=== PATIENT | female | born 1980 | race Caucasian/White ===

== ENCOUNTER 2020-03-27 08:40 | Emergency (ER) | payer OTHER, SELFPAY ==
[2020-03-27 08:56] VITALS: BP 138/98; PULSE 88; RESP 18; TEMP 36.9; O2SAT 99; BMI 37.3
--- NOTE | 2020-03-27 08:59 | CT_ITS ---
EXAMINATION: CT ABDOMEN AND PELVIS WITHOUT CONTRAST CLINICAL INFORMATION: Left flank pain. COMPARISON: None TECHNIQUE: Multidetector volumetric imaging was performed from the superior aspect of the liver through the pubic symphysis. Sagittal and coronal reformatted images were obtained on the technologist's workstation. This CT examination was performed using dose optimization techniques as appropriate, variously including the following: *Automated exposure control *Adjustment of mA and/or kV according to patient size (this includes techniques or standardized protocols for targeted exams where dose is matched to indication/reason for exam; i.e. extremities or head) *Use of iterative reconstruction technique DLP: 837 mGy-cm FINDINGS: LUNG BASES: The visualized lung bases are unremarkable. LIVER, GALLBLADDER, AND BILIARY TREE: The liver is normal in size, shape, and attenuation. No focal hepatic lesion or biliary ductal dilatation is present. Bladder has been surgically removed. PANCREAS: Unremarkable. SPLEEN: Unremarkable. ADRENAL GLANDS: Unremarkable. KIDNEYS AND URETERS: The kidneys are normal in size, shape, and attenuation. There are nonobstructing 2 mm radiopaque calculi in the lower pole of right and left kidney. No caliectasis or hydronephrosis seen. BLADDER: Unremarkable. GASTROINTESTINAL TRACT: There is scattered stool and gas seen throughout the colon without any significant distention. The small bowel loops are normal caliber. Appendix is normal caliber. ABDOMINAL WALL: No significant hernia is appreciated. LYMPH NODES: Normal. VASCULAR: Unremarkable. PELVIC VISCERA: The uterus is anteverted within IUD well located within the endometrial canal. No adnexal mass or free fluid seen. OSSEOUS STRUCTURES: There is mild posterior spondylosis/bulge complex at L5-S1 disc levels. CT/CT abdomen pelvis wo con IMPRESSION: Nonobstructive bilateral tumor radiopaque calculi lower pole both kidneys. There is no hydroureteronephrosis. The gallbladder has been surgically removed. Appendix is normal caliber. There is mild constipation.
--- NOTE | 2020-03-27 09:00 | ED.ABDPAIN ---
HPI - Abdominal Pain General Chief Complaint: Abdominal Pain Stated Complaint: kidney pain Time Seen by Provider: 03/27/20 08:58 Source: patient Mode of arrival: ambulatory Limitations: no limitations History of Present Illness MD elicited complaint: flank pain Onset (ago): day(s) (2) Pain Consistency: constant Location: L flank Severity: moderate Quality: stabbing Radiation: LLQ Migration to: no migration Exacerbating factors: nothing Relieving factors: nothing Associated symptoms: nausea, vomiting and dysuria Treatments prior to arrival: NSAIDs Related Data Previous Rx's Medication Instructions Recorded cyclobenzaprine 10 mg PO TID PRN #14 tab 03/27/20 ibuprofen 600 mg PO Q6H PRN #30 tab 03/27/20 nitrofurantoin monohyd/m-cryst 100 mg PO BID 7 Days #14 cap 03/27/20 [Macrobid] ondansetron 4 mg PO Q8H PRN #20 tab 03/27/20 Allergies Allergy/AdvReac Type Severity Reaction Status Date / Time No Known Allergies Allergy Unverified 12/23/19 16:34 [No Known Allergies*] Review of Systems Review of Systems Constitutional : No Fever, No Chills ENT/Mouth : No sore throat Eyes: No Eye Pain, No Swelling, No Redness Cardiovascular : No Chest Pain, No SOB Respiratory : No Cough, No Sputum, No Wheezing Gastrointestinal : positive Nausea, positive Vomiting, No Diarrhea, positive abdominal pain Genitourinary : positive Dysuria, no urinary frequency, no Hematuria, positive Flank Pain, positive hesitancy Musculoskeletal : No joint pain, No Myalgias Skin : No Skin Lesions, No rash Neuro : No Weakness, No Numbness, No Headache Psych : No Anxiety/Panic, No Depression Heme/Lymph: No Bruising, No Lymphadenopathy Endocrine : No Polyuria, No Polydipsia All other systems reviewed and are negative Physical Exam Vital Signs: Vital Signs: Last Vital Signs Temp 98.7 F 03/27/20 10:42 Pulse 65 03/27/20 10:42 Resp 18 03/27/20 10:42 BP 112/56 L 03/27/20 10:42 Pulse Ox 100 03/27/20 10:42 Body Mass Index 37.3 Appearance: Alert. Oriented X3. No acute distress. Eyes: Pupils equal, round and reactive to light. ENT: Pharynx normal. Neck: Normal inspection. Neck supple. CVS: Normal heart rate and rhythm. Pulses normal. Respiratory: No respiratory distress. Breath sounds normal. Abdomen: Soft and non-tender. Back: Mild L CVA ttp Skin: Skin warm and dry. Normal skin color. Normal skin turgor. Extremities: No lower extremity edema. No calf ttp Neuro: Oriented X 3. No motor deficit. No sensory deficit. Course Course Course Narrative: no acute findings at this time other + UA MDM - Abdominal Pain MDM Narrative Medical decision making narrative: 40 yo female with L flank pain and n/v x 2 days will need labs, CT scan for renal colic, IV morphine for pain, UA, dispo per results and findings. Lab Data Result diagrams: 03/27/20 09:28 03/27/20 09:27 Labs: Lab Results 03/27/20 03/27/20 03/27/20 Range/Units 09:27 09:27 09:28 WBC 7.1 (4.8-10.8) X10*3/uL RBC 4.85 (4.20-5.50) X10*6/uL Hgb 14.0 (12.0-16.0) g/dl Hct 43.5 (37-47) % MCV 89.7 (80-98) fL MCH 28.9 (27.0-33.0) pg MCHC 32.2 (31.0-35.0) g/dl RDW 13.6 (11.0-16.0) % Plt Count 184 (160-400) X10*3/uL MPV 12.1 (9.4-12.3) fL Immature Gran % (Auto) 0.3 (0.0-0.4) % Neut % (Auto) 71.8 (45-73) % Lymph % (Auto) 21.3 (20-40) % Crockett % (Auto) 4.9 (2-11) % Eos % (Auto) 1.3 (0-4) % Baso % (Auto) 0.4 (0-2) % Lymph # (Auto) 1.5 (1.2-4.9) X10*3/uL Crockett # (Auto) 0.4 (0.1-1.2) X10*3/uL Eos # (Auto) 0.1 (0.0-0.4) X10*3/uL Baso # (Auto) 0.0 (0.0-0.2) X10*3/uL Abs Immat Gran (auto) 0.02 (0.00-0.03) X10*3/uL Absolute Neuts (auto) 5.1 (2.0-8.3) X10*3/uL Absolute Nucleated RBC 0.000 (0.0-0.012) X10*3/uL Nucleated RBC % (auto) 0.0 (0.0-0.2) /100WBC Hold Blue Top SEE NOTE Sodium 137 (135-145) mmol/L Potassium 4.4 (3.3-5.1) mmol/l Chloride 105 (96-108) mmol/L Carbon Dioxide 23 (22-29) mmol/L Anion Gap 13 (12-20) BUN 12 (9-16) mg/dL Creatinine 0.77 (0.5-1.4) mg/dL Estim Creat Clear Calc 121.3 Estimated GFR > 60 Random Glucose 94 (60-115) mg/dL Calcium 8.9 (8.4-10.2) mg/dL Magnesium 1.9 (1.6-2.6) mg/dL Total Bilirubin 0.6 (0.0-1.0) mg/dL Direct Bilirubin 0.2 (0.0-0.5) mg/dL AST 21 (5-31) U/L ALT 17 (0-31) U/L Alkaline Phosphatase 63 (39-117) U/L Total Protein 7.5 (6.5-8.0) g/dL Albumin 4.1 (3.5-5.0) g/dL Lipase 23 (8-78) U/L Urine Color Urine Appearance Urine pH (5.0-8.0) Ur Specific Monroe (1.005-1.025) Urine Protein (NEG-TRACE) MG/DL Urine Glucose (UA) (NEG) MG/DL Urine Ketones (NEG) MG/DL Urine Blood (NEG) Urine Nitrite (NEG) Ur Leukocyte Esterase (NEG) Urine RBC (0) /HPF Urine WBC (0-4) /HPF Ur Squamous Epith Cells /LPF Urine Bacteria /LPF Urine Mucus /LPF Urine Test (NEGATIVE) 03/27/20 Range/Units 09:28 WBC (4.8-10.8) X10*3/uL RBC (4.20-5.50) X10*6/uL Hgb (12.0-16.0) g/dl Hct (37-47) % MCV (80-98) fL MCH (27.0-33.0) pg MCHC (31.0-35.0) g/dl RDW (11.0-16.0) % Plt Count (160-400) X10*3/uL MPV (9.4-12.3) fL Immature Gran % (Auto) (0.0-0.4) % Neut % (Auto) (45-73) % Lymph % (Auto) (20-40) % Crockett % (Auto) (2-11) % Eos % (Auto) (0-4) % Baso % (Auto) (0-2) % Lymph # (Auto) (1.2-4.9) X10*3/uL Crockett # (Auto) (0.1-1.2) X10*3/uL Eos # (Auto) (0.0-0.4) X10*3/uL Baso # (Auto) (0.0-0.2) X10*3/uL Abs Immat Gran (auto) (0.00-0.03) X10*3/uL Absolute Neuts (auto) (2.0-8.3) X10*3/uL Absolute Nucleated RBC (0.0-0.012) X10*3/uL Nucleated RBC % (auto) (0.0-0.2) /100WBC Hold Blue Top Sodium (135-145) mmol/L Potassium (3.3-5.1) mmol/l Chloride (96-108) mmol/L Carbon Dioxide (22-29) mmol/L Anion Gap (12-20) BUN (9-16) mg/dL Creatinine (0.5-1.4) mg/dL Estim Creat Clear Calc Estimated GFR Random Glucose (60-115) mg/dL Calcium (8.4-10.2) mg/dL Magnesium (1.6-2.6) mg/dL Total Bilirubin (0.0-1.0) mg/dL Direct Bilirubin (0.0-0.5) mg/dL AST (5-31) U/L ALT (0-31) U/L Alkaline Phosphatase (39-117) U/L Total Protein (6.5-8.0) g/dL Albumin (3.5-5.0) g/dL Lipase (8-78) U/L Urine Color YELLOW Urine Appearance HAZY Urine pH 6.0 (5.0-8.0) Ur Specific Monroe 1.025 (1.005-1.025) Urine Protein NEG (NEG-TRACE) MG/DL Urine Glucose (UA) NEG (NEG) MG/DL Urine Ketones NEG (NEG) MG/DL Urine Blood TRACE (NEG) Urine Nitrite NEG (NEG) Ur Leukocyte Esterase TRACE H (NEG) Urine RBC 1-4 (0) /HPF Urine WBC 5-9 H (0-4) /HPF Ur Squamous Epith Cells 2+ /LPF Urine Bacteria 1+ /LPF Urine Mucus 1+ /LPF Urine Test NEGATIVE (NEGATIVE) Discharge Plan Discharge Clinical Impression: Cystitis Patient Disposition: Home, Self-Care Instructions: Urinary Tract Infection in Women (ED), Flank Pain (ED) Additional Instructions: return to ED for any worsening symptoms or concerns Prescriptions: New cyclobenzaprine 10 mg tablet 10 mg PO TID PRN (Reason: muscle spasm) Qty: 14 RF: 0 ibuprofen 600 mg tablet 600 mg PO Q6H PRN (Reason: pain) Qty: 30 RF: 0 ondansetron 4 mg tablet,disintegrating 4 mg PO Q8H PRN (Reason: nausea and vomiting) Qty: 20 RF: 0 nitrofurantoin monohyd/m-cryst [Macrobid] 100 mg capsule 100 mg PO BID 7 Days Qty: 14 RF: 0 Referrals: Derick Benavidez MD [Primary Care Provider] - 2 days (if not better) Stand Alone Forms: Work/School Release [facility] Past Medical History Medical History (Updated 03/27/20 @ 10:51 by Mojgan Love DO) Gallstones Surgical History (Updated 03/27/20 @ 09:17 by Mojgan Love DO) Hx of cholecystectomy Social History Social History Alcohol intake: never Smoking Status: Current some day smoker Use of substances other than those prescribed or required for medical reasons: No Advance Directives: No Advance Directives Information Provided: No
[2020-03-27] MEDS: ondansetron HCL 4 MG/2 ML VIAL IVPUSH (09:29)
[2020-03-27] MEDS: Morphine Sulfate 4 MG/ML CARTRIDGE IVPUSH (09:31)
[2020-03-27] MEDS: 0.9 % Sodium Chloride 1,000 ML 999 ML IVCONT (09:33)
[2020-03-27 09:42] LABS: Glucose Urine UA NEG (NEG); Leukocyte Esterase Urine TRACE (NEG); Nitrite Urine NEG (NEG); Specific Gravity - Urine 1.025 (1.005-1.025); Urine Blood TRACE (NEG); Urine Ketones NEG (NEG); Urine Protein NEG (NEG-TRACE)
[2020-03-27 09:43] LABS: MANUAL DIFF FLAG NO
[2020-03-27 09:44] LABS: Appearance Urine HAZY; Basophils Percent Auto 0.4 % (0-2); Color Urine YELLOW; Eosinophils Absolute Auto 0.1 X10*3/uL (0.0-0.4); Eosinophils Percent Auto 1.3 % (0-4); Hematocrit 43.5 % (37-47); Imm Gran Abs Auto 0.02 X10*3/uL (0.00-0.03); Imm Gran Pct Auto 0.3 % (0.0-0.4); Lymphocytes Absolute Auto 1.5 X10*3/uL (1.2-4.9); Lymphocytes Percent Auto 21.3 % (20-40); Mean Corpuscular HGB Conc 32.2 g/dl (31.0-35.0); Mean Corpuscular Hemoglobin 28.9 pg (27.0-33.0); Mean Corpuscular Volume 89.7 fL (80-98); Mean Platelet Volume 12.1 fL (9.4-12.3); Monocytes Absolute Auto 0.4 X10*3/uL (0.1-1.2); Monocytes Percent Auto 4.9 % (2-11); Neutrophils Absolute Auto 5.1 X10*3/uL (2.0-8.3); Neutrophils Percent Auto 71.8 % (45-73); Platelet Count 184 X10*3/uL (160-400); Red Blood Count 4.85 X10*6/uL (4.20-5.50); Red Cell Distribution Width 13.6 % (11.0-16.0); White Blood Count 7.1 X10*3/uL (4.8-10.8)
[2020-03-27 09:49] LABS: Bacteria Urine 1+ /LPF; Mucus Urine 1+ /LPF; Squamous Epithelial Cell Urine 2+ /LPF
[2020-03-27 09:50] LABS: UPreg QC Valid YES; Urine Pregnancy NEGATIVE (NEGATIVE)
[2020-03-27 10:28] LABS: Alanine Aminotransferase 17 U/L (0-31); Albumin Level 4.1 g/dL (3.5-5.0); Alkaline Phosphatase 63 U/L (39-117); Anion Gap 13 (12-20); Aspartate Amino Transferase 21 U/L (5-31); Bilirubin Direct 0.2 mg/dL (0.0-0.5); Bilirubin Total 0.6 mg/dL (0.0-1.0); Blood Urea Nitrogen 12 mg/dL (9-16); Calcium 8.9 mg/dL (8.4-10.2); Carbon Dioxide 23 mmol/L (22-29); Chloride 105 mmol/L (96-108); Creatinine Clr Calc Pharmacy 121.3; Estimated Glomerular Filt Rate > 60; Glucose Random 94 mg/dL (60-115); Lipase 23 U/L (8-78); Magnesium 1.9 mg/dL (1.6-2.6); Potassium 4.4 mmol/l (3.3-5.1); Sodium 137 mmol/L (135-145); Total Protein 7.5 g/dL (6.5-8.0)
[2020-03-27 10:42] VITALS: BP 112/56; PULSE 65; RESP 18; TEMP 37.1; O2SAT 100
== END 2020-03-27 11:15 | disposition home or self-care (01) ==
PROVIDERS: Emergency Provider Emergency Medicine; PCP Internal Medicine
DX: N30.00 Acute cystitis without hematuria (principal); F17.200 Nicotine dependence, unspecified, uncomplicated
CPT/HCPCS: 36415; 74176; 80048; 80076; 81001; 81025; 83690; 83735; 85025; 87086; 96361; 96374; 96375; 99285; J2270; J2405

== ENCOUNTER 2020-07-10 11:35 | Emergency (ER) | payer OTHER, SELFPAY ==
--- NOTE | 2020-07-10 14:22 | ED_ITS ---
HPI - General Adult General Chief complaint: Fever <KRISTYN Briceno Last Filed: 07/10/20 17:49> Stated complaint: fever, covid exposed <KRISTYN Briceno - Last Filed: 07/10/20 17:49> Time Seen by Provider: 07/10/20 14:11 <KRISTYN Briceno Last Filed: 07/10/20 17:49> Source: patient <KRISTYN Briceno Last Filed: 07/10/20 17:49> Mode of arrival: ambulatory <KRISTYN Briceno Last Filed: 07/10/20 17:49> Limitations: no limitations <KRISTYN Briceno Last Filed: 07/10/20 17:49> History of Present Illness HPI narrative: 40 y/o female presenting with chest discomfort, headaches, body aches, nausea with 2 episodes of vomiting that started last night. She had a known exposure to her daughter who later found out has COVID-19. She denies SOB or difficulty breathing. She has no cough, no abdominal pain. She presents for COVID-19 testing. <KRISTYN Briceno - Last Filed: 07/10/20 17:49> MD complaint: COVID symptoms <KRISTYN Briceno Last Filed: 07/10/20 17:49> Onset (ago): day(s) (1) <KRISTYN Briceno Last Filed: 07/10/20 17:49> Location: head, chest and back <KRISTYN Briceno Last Filed: 07/10/20 17:49> Radiation: non-radiation <KRISTYN Briceno Last Filed: 07/10/20 17:49> Severity: moderate <KRISTYN Briceno Last Filed: 07/10/20 17:49> Quality: aching <KRISTYN Briceno Last Filed: 07/10/20 17:49> Pain Consistency: constant <KRISTYN Briceno Last Filed: 07/10/20 17:49> Relieving factors: none <KRISTYN Briceno Last Filed: 07/10/20 17:49> Exacerbating factors: movement <KRISTYN Briceno Last Filed: 07/10/20 17:49> Associated symptoms: chest pain, malaise and nausea/vomiting <KRISTYN Briceno Last Filed: 07/10/20 17:49> Treatments prior to arrival: none <KRISTYN Briceno - Last Filed: 07/10/20 17:49> Related Data Home medications: Previous Rx's Medication Instructions Recorded cyclobenzaprine 10 mg PO TID PRN #14 tab 03/27/20 ibuprofen 600 mg PO Q6H PRN #30 tab 03/27/20 nitrofurantoin monohyd/m-cryst 100 mg PO BID 7 Days #14 cap 03/27/20 [Macrobid] ondansetron 4 mg PO Q8H PRN #20 tab 03/27/20 ondansetron HCl [Zofran] 4 mg PO Q8H PRN #10 tab 07/10/20 <KRISTYN Briceno Last Filed: 07/10/20 17:49> Allergies/adverse reactions: Allergies Allergy/AdvReac Type Severity Reaction Status Date / Time No Known Allergies Allergy Verified 07/10/20 15:08 [No Known Allergies*] <KRISTYN Briceno - Last Filed: 07/10/20 17:49> Review of Systems Review of Systems: Constitutional: No Fever, + Chills ENT/Mouth: No sore throat, No Rhinorrhea, No Swallowing Difficulty Cardiovascular: + Chest Pain, No SOB Respiratory: No Cough, No Sputum, No Wheezing, No dyspnea Gastrointestinal: No Nausea, No Vomiting, No Diarrhea, No abdominal Pain Musculoskeletal: No joint pain, + Myalgias Skin: No rash Neuro: + Weakness, No Numbness, No Dizziness, + Headache <KRISTYN Briceno Last Filed: 07/10/20 17:49> FORMERLY [facility] Past Medical History Attestation statement: The following information was validated with the patient. <KRISTYN Briceno Last Filed: 07/10/20 17:49> Medical History: Medical History Gallstones <KRISTYN Briceno Last Filed: 07/10/20 17:49> Surgical History: Surgical History Hx of cholecystectomy <KRISTYN Briceno - Last Filed: 07/10/20 17:49> Social History Social History: Social History Alcohol intake: never Smoking Status: Current some day smoker Advance Directives: No Advance Directives Information Provided: No <KRISTYN Briceno - Last Filed: 07/10/20 17:49> Physical Exam Vital Signs: Vital Signs: Last Vital Signs Temp 98.1 F 07/10/20 15:05 Pulse 87 07/10/20 15:05 Resp 16 07/10/20 15:05 BP 119/82 07/10/20 15:05 Pulse Ox 98 07/10/20 15:05 Body Mass Index 35.5 Appearance: Alert. Oriented X3. No acute distress. Eyes: Pupils equal, round and reactive to light. ENT: Pharynx normal. Neck: Normal inspection. Neck supple. CVS: Normal heart rate and rhythm. Pulses normal. Respiratory: No respiratory distress. Breath sounds normal. Anterior chest wall tenderness Abdomen: Soft and nontender. +BS x4 Skin: Skin warm and dry. Normal skin color. Normal skin turgor. No rashes. Extremities: No lower extremity edema. Negative Krista's sign Neuro: Oriented X 3. Non-focal <KRISTYN Briceno - Last Filed: 07/10/20 17:49> Vital Signs: Last Vital Signs Temp 98.1 F 07/10/20 15:05 Pulse 87 07/10/20 15:05 Resp 16 07/10/20 15:05 BP 119/82 07/10/20 15:05 Pulse Ox 98 07/10/20 15:05 Body Mass Index 35.5 <Keyon Moreno MD - Last Filed: 07/25/20 09:18> Course Course Course Narrative: 40 y/o female presenting with COVID symptoms after known exposure. Vital signs are normal and her exam is normal. Counseled on probable COVID diagnosis and management, will swab. Stable for discharge, will call with results. <KRISTYN Briceno - Last Filed: 07/10/20 17:49> I have reviewed the chart <Keyon Moreno MD - Last Filed: 07/25/20 09:18> Medical Decision Making Lab Data Labs: Lab Results 07/10/20 Range/Units 15:09 Coronavirus (PCR) POSITIVE A (Negative) Influenza Type A (PCR) NEGATIVE (Negative) Influenza Type B (PCR) NEGATIVE (Negative) RSV RNA Qual (PCR) NEGATIVE (Negative) <KRISTYN Briceno - Last Filed: 07/10/20 17:49> Lab Results 07/10/20 Range/Units 15:09 Coronavirus (PCR) POSITIVE A (Negative) Influenza Type A (PCR) NEGATIVE (Negative) Influenza Type B (PCR) NEGATIVE (Negative) RSV RNA Qual (PCR) NEGATIVE (Negative) <Keyon Moreno MD - Last Filed: 07/25/20 09:18> Critical Care Time Critical Care Time Critical Care Time: No <KRISTYN Briceno - Last Filed: 07/10/20 17:49> Discharge Plan Discharge Clinical Impression: Acute viral syndrome <KRISTYN Briceno - Last Filed: 07/10/20 17:49> Patient Disposition: Home, Self-Care <KRISTYN Briceno - Last Filed: 07/10/20 17:49> Instructions: Viral Syndrome (ED), COVID-19 (Coronavirus Disease 2019) (ED) <KRISTYN Briceno - Last Filed: 07/10/20 17:49> Additional Instructions: You were tested for COVID-19 today. We will call you with the results this afternoon. Given your known exposure, do not go out in public for the next 10 days. Rest. Drink plenty of fluids. Take over the counter cold/flu medications as needed for your symptoms. Take Tylenol and/or Motrin as needed for fevers and body aches. Follow up with your doctor this week. If you develop difficulty breathing or any other concerning symptom come back to the ER for further evaluation. <KRISTYN Briceno - Last Filed: 07/10/20 17:49> Prescriptions: New ondansetron HCl [Zofran] 4 mg tablet 4 mg PO Q8H PRN (Reason: nausea and vomiting) Qty: 10 RF: 0 No Action cyclobenzaprine 10 mg tablet 10 mg PO TID PRN (Reason: muscle spasm) Qty: 14 RF: 0 ibuprofen 600 mg tablet 600 mg PO Q6H PRN (Reason: pain) Qty: 30 RF: 0 ondansetron 4 mg tablet,disintegrating 4 mg PO Q8H PRN (Reason: nausea and vomiting) Qty: 20 RF: 0 nitrofurantoin monohyd/m-cryst [Macrobid] 100 mg capsule 100 mg PO BID 7 Days Qty: 14 RF: 0 <KRISTYN Briceno - Last Filed: 07/10/20 17:49> Interventions: ED Discharge Assessment Last Done: 07/10/20 15:58 <KRISTYN Briceno - Last Filed: 07/10/20 17:49> Discharge Date/Time: 07/10/20 15:58 <KRISTYN Briceno - Last Filed: 07/10/20 17:49>
[2020-07-10 15:05] VITALS: BP 119/82; PULSE 87; RESP 16; TEMP 36.7; O2SAT 98; BMI 35.5
[2020-07-10 16:23] LABS: Influenza A PCR NEGATIVE (Negative); Influenza B PCR NEGATIVE (Negative); Resp Syncy Virus RNA Qual PCR NEGATIVE (Negative); SARS COV2 PCR INHOUSE POSITIVE (Negative)
== END 2020-07-10 15:58 | disposition home or self-care (01) ==
PROVIDERS: Physician Assistant; Emergency Provider Emergency Medicine; PCP Internal Medicine
DX: U07.1 COVID-19 (principal)
CPT/HCPCS: 0241U; 36415; 99283

== ENCOUNTER 2021-01-25 15:39 | Outpatient (REF) | payer OTHER, SELFPAY ==
[2021-01-25 15:51] LABS: MANUAL DIFF FLAG NO
[2021-01-25 16:56] LABS: Basophils Percent Auto 0.5 % (0-2); Eosinophils Absolute Auto 0.2 X10*3/uL (0.0-0.4); Eosinophils Percent Auto 1.9 % (0-4); Hematocrit 40.3 % (37-47); Imm Gran Abs Auto 0.05 X10*3/uL (0.00-0.03); Imm Gran Pct Auto 0.6 % (0.0-0.4); Lymphocytes Absolute Auto 2.1 X10*3/uL (1.2-4.9); Lymphocytes Percent Auto 23.9 % (20-40); Mean Corpuscular HGB Conc 32.3 g/dl (31.0-35.0); Mean Corpuscular Hemoglobin 28.8 pg (27.0-33.0); Mean Corpuscular Volume 89.4 fL (80-98); Mean Platelet Volume 12.3 fL (9.4-12.3); Monocytes Absolute Auto 0.5 X10*3/uL (0.1-1.2); Monocytes Percent Auto 6.1 % (2-11); Neutrophils Absolute Auto 5.9 X10*3/uL (2.0-8.3); Platelet Count 193 X10*3/uL (160-400); Red Blood Count 4.51 X10*6/uL (4.20-5.50); Red Cell Distribution Width 13.2 % (11.0-16.0); White Blood Count 8.8 X10*3/uL (4.8-10.8)
[2021-01-25 17:02] LABS: Prothrombin Time 11.3 SEC (9.9-13.0)
[2021-01-25 17:05] LABS: Partial Thromboplastin Time 31.6 SEC (24.1-38.0)
[2021-01-25 17:22] LABS: Alanine Aminotransferase 19 U/L (0-31); Albumin Level 4.1 g/dL (3.5-5.0); Alkaline Phosphatase 72 U/L (39-117); Anion Gap 12 (12-20); Aspartate Amino Transferase 22 U/L (5-31); Bilirubin Total 0.4 mg/dL (0.0-1.0); Blood Urea Nitrogen 17 mg/dL (9-16); Calcium 9.5 mg/dL (8.4-10.2); Carbon Dioxide 29 mmol/L (22-29); Chloride 105 mmol/L (96-108); Estimated Glomerular Filt Rate > 60; Glucose Random 84 mg/dL (60-115); Potassium 4.6 mmol/L (3.3-5.1); Sodium 141 mmol/L (135-145)
== END 2021-01-25 15:40 | disposition home or self-care (01) ==
LOC: HO.LAB 15:39
PROVIDERS: PCP Internal Medicine; Visit Provider Internal Medicine
DX: Z01.818 Encounter for other preprocedural examination (principal)
CPT/HCPCS: 36415; 80053; 85025; 85610; 85730

== ENCOUNTER 2021-03-05 09:32 | Emergency (ER) | payer OTHER, SELFPAY ==
--- NOTE | ~2021-03-05 | CT_ITS ---
EXAMINATION: CT ABDOMEN AND PELVIS WITH CONTRAST CLINICAL INFORMATION: Status post abdominoplasty in the ER. COMPARISON: None TECHNIQUE: Multidetector volumetric images were obtained from the superior aspect of the liver through the pubic symphysis following administration 85 mL of Omnipaque 350 intravenous contrast. Sagittal and coronal reformatted images were obtained on the technologist's workstation. Oral contrast: No This CT examination was performed using dose optimization techniques as appropriate, variously including the following: *Automated exposure control *Adjustment of mA and/or kV according to patient size (this includes techniques or standardized protocols for targeted exams where dose is matched to indication/reason for exam; i.e. extremities or head) *Use of iterative reconstruction technique DLP: 748 mGy-cm FINDINGS: LUNG BASES: The visualized lung bases are unremarkable. Suspect small hiatal hernia LIVER, GALLBLADDER, AND BILIARY TREE: The liver is normal in size, shape, and attenuation. No focal hepatic lesion or biliary ductal dilatation is present. The gallbladder has been surgically removed. PANCREAS: Unremarkable. SPLEEN: Unremarkable. ADRENAL GLANDS: Unremarkable. KIDNEYS AND URETERS: The kidneys are normal in size, shape, and attenuation. There is a punctate 1 mm radiopaque nonobstructing calculi lower pole calyx right kidney. No additional radiopaque calculi seen. There is no hydroureteronephrosis. No perinephric stranding. BLADDER: Unremarkable. GASTROINTESTINAL TRACT: There is scattered stool and gas seen throughout the colon without any significant distention. The small bowel loops are normal caliber. Appendix is normal caliber. No free air or free fluid seen. ABDOMINAL WALL: There are postsurgical changes anterior abdominal wall status post abdominoplasty. There is a catheter traversing the width of supratentorial abdominal wall for drainage. There is no abnormal fluid collection seen to suspect any seroma or abscess. . LYMPH NODES: Normal. VASCULAR: Unremarkable. PELVIC VISCERA: There is a complex small rightward cyst measuring 2.7 x 2.1 cm and 20,000 units. A simple (cyst measures 3.6 x 2.5 cm. There is no free fluid in the cul-de-sac. The uterus is anteverted with an IUD well located within the endometrial canal. OSSEOUS STRUCTURES: No aggressive lytic or sclerotic process seen. CT/CT abdomen pelvis w con IMPRESSION: Status post abdominoplasty with post surgical changes seen along the anterior abdominal wall with edema. There is a catheter traversing the width of the abdominal wall for drainage. No seroma or abscess collection seen. No intra-abdominal process seen either. Suspect tumor radiopaque calculi lower pole calyx right kidney without caliectasis. Mild constipation. Small hiatal hernia.
[2021-03-05 10:16] VITALS: BP 146/95; PULSE 98; RESP 16; TEMP 37; O2SAT 100; BMI 34.6
[2021-03-05 11:22] LABS: MANUAL DIFF FLAG NO
[2021-03-05 11:23] LABS: Basophils Percent Auto 0.4 % (0-2); Eosinophils Absolute Auto 0.3 X10*3/uL (0.0-0.4); Eosinophils Percent Auto 4.1 % (0-4); Hematocrit 36.3 % (37.0-47.0); Hemoglobin 11.6 g/dl (12.0-16.0); Imm Gran Abs Auto 0.06 X10*3/uL (0.00-0.03); Imm Gran Pct Auto 0.8 % (0.0-0.4); Lymphocytes Absolute Auto 1.9 X10*3/uL (1.2-4.9); Lymphocytes Percent Auto 25.3 % (20-40); Mean Corpuscular Hemoglobin 28.9 pg (27.0-33.0); Mean Corpuscular Volume 90.5 fL (80.0-98.0); Mean Platelet Volume 10.9 fL (9.4-12.3); Monocytes Absolute Auto 0.5 X10*3/uL (0.1-1.2); Monocytes Percent Auto 6.4 % (2-11); Neutrophils Absolute Auto 4.8 x10*3/uL (2.0-8.3); Platelet Count 224 X10*3/uL (160-400); Red Blood Count 4.01 X10*6/uL (4.20-5.50); Red Cell Distribution Width 14.2 % (11.0-16.0); White Blood Count 7.6 X10*3/uL (4.8-10.8)
[2021-03-05 11:40] LABS: Alanine Aminotransferase 29 U/L (0-31); Albumin Level 3.6 g/dL (3.5-5.0); Alkaline Phosphatase 71 U/L (39-117); Anion Gap 13 (12-20); Aspartate Amino Transferase 20 U/L (5-31); Bilirubin Total 0.2 mg/dL (0.0-1.0); Blood Urea Nitrogen 12 mg/dL (9-16); Calcium 8.7 mg/dL (8.4-10.2); Carbon Dioxide 24 mmol/L (22-29); Chloride 106 mmol/L (96-108); Creatinine Clr Calc Pharmacy 124.5; Estimated Glomerular Filt Rate > 60; Glucose Random 103 mg/dL (60-115); Potassium 4.3 mmol/L (3.3-5.1); Sodium 139 mmol/L (135-145); Total Protein 6.5 g/dL (6.5-8.0)
[2021-03-05 12:27] LABS: Lipase 42 U/L (8-78); Magnesium 1.7 mg/dL (1.6-2.6)
[2021-03-05 12:49] LABS: Lactic Acid 1.1 mmol/L (0.5-2.0)
[2021-03-05] MEDS: iohexoL 350 MG/ML 100 ML INFUS..BTL IV (12:59)
--- NOTE | 2021-03-05 13:07 | ED_ITS ---
HPI - General Adult General Chief complaint: General Medical Stated complaint: ?infected belly button Time Seen by Provider: 03/05/21 11:22 Source: patient Mode of arrival: ambulatory History of Present Illness HPI narrative: 40-year-old with a past medical history of abdominoplasty on 02/08 in presenting to the ED complaining of purulence yellow/green discharge from umbilicus x2 days with fever T-max 101?. Reports drain still present to [facility] with about 200 cc output daily. Reports abdominal pain and firmness. Denies chills, nausea, vomiting, diarrhea/constipation, dysuria/hematuria Onset (ago): day(s) Related Data Previous Rx's Medication Instructions Recorded cyclobenzaprine 10 mg tablet 10 mg PO TID PRN #14 tab 03/27/20 ibuprofen 600 mg tablet 600 mg PO Q6H PRN #30 tab 03/27/20 nitrofurantoin 100 mg PO BID 7 Days #14 cap 03/27/20 monohydrate/macrocrystals 100 mg capsule (Macrobid) ondansetron 4 mg disintegrating 4 mg PO Q8H PRN #20 tab 03/27/20 tablet ondansetron HCl 4 mg tablet 4 mg PO Q8H PRN #10 tab 07/10/20 (Zofran) amoxicillin 875 mg-potassium 1 tab PO Q12H 7 Days #14 tab 03/05/21 clavulanate 125 mg tablet (Augmentin) bacitracin 500 unit/gram topical 1 appl TOPICAL BID #30 g 03/05/21 ointment hydrocodone 5 mg-acetaminophen 325 1 tab PO Q8H PRN 3 Days #9 tab 03/05/21 mg tablet Allergies Allergy/AdvReac Type Severity Reaction Status Date / Time No Known Allergies Allergy Verified 07/10/20 15:08 [No Known Allergies*] Review of Systems Review of Systems: Constitutional: + Fever, No Chills,No Fatigue, No Malaise ENT/Mouth: No Ear Pain, No Nasal Congestion, No sore throat, No Rhinorrhea, No Swallowing Difficulty Eyes: No Eye Pain, No Swelling, No Redness Cardiovascular: No Chest Pain, No SOB, No Edema Respiratory: No Cough, No Dyspnea Gastrointestinal: No Nausea, No Vomiting, No Diarrhea, No Constipation, + Abdominal pain Genitourinary: No Dysuria, No Urinary Frequency, No Hematuria, No Flank Pain, No Urinary Flow Changes Musculoskeletal: No joint pain, No Myalgias, No Joint Swelling Skin: No Skin Lesions, No rash Neuro: No Weakness, No Dizziness, No Headache Yes all other systems are reviewed and are negative [facility] Past Medical History Attestation statement: The following information was validated with the patient. Medical History Gallstones Surgical History Hx of cholecystectomy Social History Social History Alcohol intake: never Advance Directives: No Patient : No Physical Exam Vital Signs: Vital Signs: Last Vital Signs Temp 98.6 F 03/05/21 10:16 Pulse 98 03/05/21 10:16 Resp 16 03/05/21 10:16 BP 146/95 H 03/05/21 10:16 Pulse Ox 100 03/05/21 10:16 Body Mass Index 34.6 Const: General: cooperative, healthy appearing and no acute distress Orientation/consciousness: patient oriented x3 Limitations: no limitations HENMT: Head: Yes normal to inspection and Yes atraumatic Ears: hearing grossly normal bilaterally General nose exam: Normal external nose present Face and sinus: Yes normal facial exam Eyes: General: appearance normal, both eyes and all related structures EOM: EOMs intact bilaterally Neck: Neck: Yes normal visual inspection and Yes no meningeal signs Resp: Effort & Inspection: normal respiratory effort and no respiratory distress Auscultation: clear to auscultation bilaterally Cardio: Rate: regular rate Heart sounds: S1 normal heart sound present and S2 normal heart sound present GI: Other: Healing abdominoplasty incision noted to lower abdomen with bulb drain intact to left lower quadrant. Incision noted periumbilically with sutures in place, slight yellow drainage from umbilicus No wound dehiscence, no fluctuance. Abdomen firm, mildly tender, no erythema, mildly warm Palpation (GI): Soft to palpation, Tenderness to palpation present (GI) periumbilically, no guarding and not rigid Skin: Rashes: no rashes Wounds: no wounds Neuro: General: patient oriented x3 and no meningeal signs Gait exam (Neuro): Normal gait present Extrem: General: Yes normal to inspection Course Course Course Narrative: -1319--no leukocytosis. H&H 11.6/36.1 lower than baseline likely postoperative effect, lactic acid negative -labs otherwise unremarkable CT abdomen pelvis w con IMPRESSION: Status post abdominoplasty with post surgical changes seen along the anterior abdominal wall with edema. There is a catheter traversing the width of the abdominal wall for drainage. No seroma or abscess collection seen. No intra-abdominal process seen either. ? Suspect tumor radiopaque calculi lower pole calyx right kidney without caliectasis. ? Mild constipation. ? Small hiatal hernia. >> case discussed with surgery Dr. Nielson -[id number]--Dr. Nielson evaluated patient in the emergency department recommended Augmentin and follow-up in the office. Medical Decision Making MDM Narrative Medical decision making narrative: 40-year-old with a past medical history of abdominoplasty on 02/08 in presenting to the ED complaining of purulence yellow/green discharge from umbilicus x2 days with fever T-max 101?. On exam vital signs stable, NAD/nontoxic, physical exam as above. Concern for underlying abscess/fluid collection or hematoma/seroma. Low concern for severe sepsis at this time Plan: Labs, lactic, blood cultures, CT abdomen/pelvis Medical Records Medical records reviewed: Yes I reviewed the patient's medical records. Lab Data Lab results reviewed: Yes I reviewed the patient's lab results. Result diagrams: 03/05/21 11:12 03/05/21 11:12 Labs: Lab Results 03/05/21 03/05/21 03/05/21 Range/Units 11:12 11:12 12:16 WBC 7.6 (4.8-10.8) X10*3/uL RBC 4.01 L (4.20-5.50) X10*6/uL Hgb 11.6 L (12.0-16.0) g/dl Hct 36.3 L (37.0-47.0) % MCV 90.5 (80.0-98.0) fL MCH 28.9 (27.0-33.0) pg MCHC 32.0 (31.0-35.0) g/dl RDW 14.2 (11.0-16.0) % Plt Count 224 (160-400) X10*3/uL MPV 10.9 (9.4-12.3) fL Immature Gran % (Auto) 0.8 H (0.0-0.4) % Neut % (Auto) 63.0 (45-73) % Lymph % (Auto) 25.3 (20-40) % Trinity % (Auto) 6.4 (2-11) % Eos % (Auto) 4.1 H (0-4) % Baso % (Auto) 0.4 (0-2) % Lymph # (Auto) 1.9 (1.2-4.9) X10*3/uL Trinity # (Auto) 0.5 (0.1-1.2) X10*3/uL Eos # (Auto) 0.3 (0.0-0.4) X10*3/uL Baso # (Auto) 0.0 (0.0-0.2) X10*3/uL Abs Immat Gran (auto) 0.06 H (0.00-0.03) X10*3/uL Absolute Neuts (auto) 4.8 (2.0-8.3) x10*3/uL Absolute Nucleated RBC 0.000 (0.0-0.012) X10*3/uL Nucleated RBC % (auto) 0.0 (0.0-0.2) /100WBC Sodium 139 (135-145) mmol/L Potassium 4.3 (3.3-5.1) mmol/L Chloride 106 (96-108) mmol/L Carbon Dioxide 24 (22-29) mmol/L Anion Gap 13 (12-20) BUN 12 (9-16) mg/dL Creatinine 0.72 (0.5-1.4) mg/dL Estim Creat Clear Calc 124.5 Estimated GFR > 60 Random Glucose 103 (60-115) mg/dL Lactic Acid 1.1 (0.5-2.0) mmol/L Calcium 8.7 D (8.4-10.2) mg/dL Magnesium 1.7 (1.6-2.6) mg/dL Total Bilirubin 0.2 (0.0-1.0) mg/dL AST 20 (5-31) U/L ALT 29 (0-31) U/L Alkaline Phosphatase 71 (39-117) U/L Total Protein 6.5 (6.5-8.0) g/dL Albumin 3.6 (3.5-5.0) g/dL Lipase 42 (8-78) U/L Discharge Plan Discharge Clinical Impression: Post-operative infection Qualifiers: Encounter type: initial encounter Postoperative infection type: unspecified type Qualified Code(s): T81.40XA - Infection following a procedure, unspecified, initial encounter Patient Disposition: Home, Self-Care Instructions: Surgical Site Infections (ED) Additional Instructions: Your blood work was reassuring today in the emergency department Your CT scan shows swelling, no abscess or fluid collection Augmentin is an antibiotic, Please take as prescribed It is very important for you to follow-up with General surgery If symptoms persist or worsen you develop fever, chills, worsening drainage/u nbearable abdominal pain, persistent nausea or vomiting please return to the ED Prescriptions: New amoxicillin-pot clavulanate [Augmentin] 875-125 mg tablet 1 tab PO Q12H 7 Days Qty: 14 RF: 0 hydrocodone-acetaminophen 5-325 mg tablet 1 tab PO Q8H PRN (Reason: pain, severe) 3 Days Qty: 9 RF: 0 bacitracin 500 unit/gram ointment 1 appl topical BID Qty: 30 RF: 2 No Action cyclobenzaprine 10 mg tablet 10 mg PO TID PRN (Reason: muscle spasm) Qty: 14 RF: 0 ibuprofen 600 mg tablet 600 mg PO Q6H PRN (Reason: pain) Qty: 30 RF: 0 ondansetron 4 mg tablet,disintegrating 4 mg PO Q8H PRN (Reason: nausea and vomiting) Qty: 20 RF: 0 nitrofurantoin monohyd/m-cryst [Macrobid] 100 mg capsule 100 mg PO BID 7 Days Qty: 14 RF: 0 ondansetron HCl [Zofran] 4 mg tablet 4 mg PO Q8H PRN (Reason: nausea and vomiting) Qty: 10 RF: 0 Referrals: Derick Nielson MD [Physician] - 1 week
[2021-03-05] MEDS: oxyCODONE HCl Immed Release 5 MG TABLET PO (14:28)
[2021-03-05] MEDS: Acetaminophen 325 MG TABLET 650 MG PO (14:28)
[2021-03-05 15:58] VITALS: BP 146/88; PULSE 85; RESP 16; TEMP 37.3; O2SAT 99
--- NOTE | 2021-03-05 16:39 | PM.CNGS ---
History of Present Illness Consult details Consult date: 03/05/21 Narrative: 40-year-old female referred for a ?infected umbilicus . She apparently had undergone abdominoplasty the [place] last 02/08/2021. She had a drain in place as well under her flaps. She says that she saw her surgeon sometime 2 weeks after her procedure and she was cleared to fly back to the . She therefore flew back to [place] last February 25. However, she says that past several days, she had notice some drainage from her umbilicus. She says that she had some pain although this was described to be not severe. She denies any redness around her incisions. She still has her drain in place. She apparently had reported fever at home although this was not documented. Currently, she feels well and says the she has no chills or fever. Review of Systems Constitutional: Constitutional: Denies chills and Reports fever(s) (Not documented however) Cardiovascular: Cardiovascular: Denies chest pain, Denies dyspnea and Denies dyspnea on exertion Respiratory: Respiratory: Denies cough, Denies dyspnea and Denies dyspnea on exertion Gastrointestinal: Gastrointestinal: Denies hematochezia and Denies change in bowel habits Genitourinary: Genitourinary: Denies hematuria Musculoskeletal: Musculoskeletal: Denies back pain and Denies limited range of motion Neurologic: Denies focal weakness and Denies convulsions Psychiatric: Psychiatric: Denies depression and Denies mood swings PMFSH Past Medical History Medical History Gallstones Surgical History Surgical History Hx of cholecystectomy Social History Social History Alcohol intake: never Advance Directives: No Patient : No Meds Allergies Allergy/AdvReac Type Severity Reaction Status Date / Time No Known Allergies Allergy Verified 07/10/20 15:08 [No Known Allergies*] Physical Exam Vital Signs: Vital Signs: Last Vital Signs Temp 99.2 F 03/05/21 15:58 Pulse 85 03/05/21 15:58 Resp 16 03/05/21 15:58 BP 146/88 H 03/05/21 15:58 Pulse Ox 99 03/05/21 15:58 Body Mass Index 34.6 Const: General: comfortable and no acute distress Orientation/consciousness: patient oriented x3 Neck: Neck: Yes no lymphadenopathy Resp: Auscultation: clear to auscultation bilaterally Cardio: Rhythm: regular rhythm GI: Other: Abdominoplasty scar is healing well, cellulitis, drain is seen with serous output, exiting from the right flank area. The umbilicus however appears discolored with no cellulitis, no pus or fluctuance Palpation (GI): Soft to palpation, nontender and no guarding Neuro: General: patient oriented x3 Results Labs Result diagrams: 03/05/21 11:12 03/05/21 11:12 Labs: Abnormal lab results 03/05/21 Range/Units 11:12 RBC 4.01 L (4.20-5.50) X10*6/uL Hgb 11.6 L (12.0-16.0) g/dl Hct 36.3 L (37.0-47.0) % Immature Gran % (Auto) 0.8 H (0.0-0.4) % Eos % (Auto) 4.1 H (0-4) % Abs Immat Gran (auto) 0.06 H (0.00-0.03) X10*3/uL Short CBC 03/05/21 Range/Units 11:12 WBC 7.6 (4.8-10.8) X10*3/uL Hgb 11.6 L (12.0-16.0) g/dl Hct 36.3 L (37.0-47.0) % Plt Count 224 (160-400) X10*3/uL BMP 03/05/21 11:12 Sodium 139 Potassium 4.3 Chloride 106 Carbon Dioxide 24 BUN 12 Creatinine 0.72 Calcium 8.7 D Liver Function 03/05/21 Range/Units 11:12 Total Bilirubin 0.2 (0.0-1.0) mg/dL AST 20 (5-31) U/L ALT 29 (0-31) U/L Alkaline Phosphatase 71 (39-117) U/L Albumin 3.6 (3.5-5.0) g/dL All other labs normal. Imaging Abdomen CT scan report/results: report reviewed and image reviewed CT scan - pelvis: report reviewed and image reviewed Assessment and Plan (1) Post-operative infection: Qualifiers: Encounter type: initial encounter Postoperative infection type: unspecified type Qualified Code(s): T81.40XA - Infection following a procedure, unspecified, initial encounter Status: Inactive She is status post abdominoplasty in the [facility] last of February 08, 2021. She has had some scanty drainage from the umbilicus. She does have some discoloration of her umbilicus suggestive of ischemic changes. There is no gangrene however and there is no cellulitic changes. Her white count is within normal. She has no fever here in the ER and she appears be nonseptic. I therefore explained to her that she may end up with chronic wound on her umbilicus. It is reasonable to put her on oral antibiotics at this time. I did tell her that it may be best for her to see a plastic surgeon in the area to her in view of this ischemic changes over umbilicus. She may need this revised or debrided down the line. I have reviewed her CAT scan and there was no ongoing necrotizing process nor abscess at this time. I can see her in the office for a follow-up, but it may be best for her to be seen by a plastic surgeon in the area however and this was emphasized to her. Procedures Date of Service Date of Service: 03/05/21
[2021-03-05 18:00] VITALS: BP 144/95; PULSE 86; RESP 16; TEMP 36.9; O2SAT 96
== END 2021-03-05 18:27 | disposition home or self-care (01) ==
PROVIDERS: Physician Assistant; Emergency Provider Emergency Medicine; PCP Internal Medicine
DX: L08.9 Local infection of the skin and subcutaneous tissue, unspecified (principal); R10.32 Left lower quadrant pain; Z98.84 Bariatric surgery status; Z79.899 Other long term (current) drug therapy
CPT/HCPCS: 36415; 74177; 80053; 83605; 83690; 83735; 85025; 87040; 99284; Q9967

== ENCOUNTER 2023-05-13 16:00 | Outpatient (REF) | payer OTHER, SELFPAY ==
[2023-05-13 16:12] LABS: MANUAL DIFF FLAG NO
[2023-05-13 17:10] LABS: Basophils Percent Auto 0.5 % (0-2); Eosinophils Absolute Auto 0.1 X10*3/uL (0.0-0.4); Eosinophils Percent Auto 1.3 % (0-4); Hematocrit 43.6 % (37.0-47.0); Hemoglobin 14.3 g/dl (12.0-16.0); Imm Gran Abs Auto 0.05 X10*3/uL (0.00-0.03); Imm Gran Pct Auto 0.6 % (0.0-0.4); Lymphocytes Absolute Auto 2.2 X10*3/uL (1.2-4.9); Lymphocytes Percent Auto 27.7 % (20-40); Mean Corpuscular HGB Conc 32.8 g/dl (31.0-35.0); Mean Corpuscular Hemoglobin 29.3 pg (27.0-33.0); Mean Corpuscular Volume 89.3 fL (80.0-98.0); Mean Platelet Volume 12.4 fL (9.4-12.3); Monocytes Absolute Auto 0.5 X10*3/uL (0.1-1.2); Monocytes Percent Auto 6.2 % (2-11); Neutrophils Percent Auto 63.7 % (45-73); Platelet Count 167 X10*3/uL (160-400); Red Blood Count 4.88 X10*6/uL (4.20-5.50); Red Cell Distribution Width 13.2 % (11.0-16.0); White Blood Count 7.8 X10*3/uL (4.8-10.8)
[2023-05-13 17:39] LABS: Alanine Aminotransferase 17 U/L (0-31); Alkaline Phosphatase 83 U/L (39-117); Anion Gap 14 (12-20); Aspartate Amino Transferase 17 U/L (5-31); Bilirubin Total 0.3 mg/dL (0.0-1.0); Blood Urea Nitrogen 14 mg/dL (9-16); C Reactive Protein 0.34 mg/dL (< or = 0.50); Calcium 9.2 mg/dL (8.4-10.2); Carbon Dioxide 26 mmol/L (22-29); Chloride 106 mmol/L (96-108); Cholesterol 211 mg/dL (<200); Estimated Glomerular Filt Rate > 60; Glucose Random 81 mg/dL (60-115); Potassium 4.1 mmol/L (3.3-5.1); Sodium 142 mmol/L (135-145)
== END 2023-05-13 16:01 | disposition home or self-care (01) ==
LOC: HO.LAB 16:00
PROVIDERS: PCP Internal Medicine; Visit Provider Internal Medicine
DX: R21 Rash and other nonspecific skin eruption (principal); Z72.0 Tobacco use; I45.10 Unspecified right bundle-branch block; D64.9 Anemia, unspecified
CPT/HCPCS: 36415; 80053; 82465; 85025; 86140